=== PATIENT | female | born 1990 | race Caucasian/White ===

== ENCOUNTER 2016-06-07 12:33 | Emergency (ER) | payer OTHER | END 2016-06-07 13:46 | disposition home or self-care (01) | LOC: EDBD 12:33 → ER 12:33 | DX: S60.221A Contusion of right hand, initial encounter (principal); Z98.51 Tubal ligation status; W22.8XXA Striking against or struck by other objects, initial encounter; Y92.009 Unspecified place in unspecified non-institutional (private) residence as the place of occurrence of the external cause ==